=== PATIENT | male | born 1945 | race Caucasian/White ===

== ENCOUNTER 2017-11-11 09:41 | Day surgery (SDC) | payer BC, MEDICARE ==
[2017-11-11] VITALS (12 sets, daily range): BP systolic 99–160; BP diastolic 53–89
[~2017-11-11] VITALS: Ht 177.8 cm; Wt 87.4 kg
[~2017-11-11 09:41] MED LIST: AMLO10TA13 PO; ASPI-612 PO; BUPR150T6 PO; DOCU100C40 PO; FLAX100032 PO; GABA-581 PO; GLUC1CAP17 PO; HYDR-565 PO; HYDR12.522 PO; LEVO200T43 PO; LOVA20TA2 PO; MOME17SP NS; MULT-1085 PO; NAPR-762 PO; OMEG1CAP54 PO; TRAZ-91 PO; VALS160T2 PO; ZOLP5TAB8 PO
[2017-11-11] MEDS ORDERED: LORazepam 0.5 MG tablet PO PRN (10:25)
[2017-11-11] MEDS ORDERED: diphenhydrAMINE 25mg capsule PO PRN (10:25)
[2017-11-11] MEDS ORDERED: nitroGLYCERIN 0.4mg SUBLingual tab SL PRN (10:25)
[2017-11-11] MEDS ORDERED: normal saline 1000ml 1,000 ML IV SCH ×2 (10:25→14:50)
[2017-11-11 11:09] LABS: BASOPHILS % (AUTO) 0.6 % (0-1); EOSINOPHILS # (AUTO) 0.2 X10'3 (0-0.9); EOSINOPHILS % (AUTO) 3.9 % (0-6); LYMPHOCYTES # (AUTO) 1.5 X10'3 (1.1-4.8); LYMPHOCYTES % (AUTO) 26.6 % (21-51); MEAN CORPUSCULAR HEMOGLOBIN 33.4 PG (27.0-31.0); MEAN CORPUSCULAR HGB CONC 34.1 % (33.0-36.5); MEAN CORPUSCULAR VOLUME 97.9 FL (78-98); MEAN PLATELET VOLUME 10.7 FL (7.4-10.4); MONOCYTES # (AUTO) 0.5 X10'3 (0-0.9); MONOCYTES % (AUTO) 8.4 % (2-12); NEUTROPHILS # (AUTO) 3.4 X10'3 (1.8-7.7); NEUTROPHILS % (AUTO) 60.5 % (42-75); PLATELET COUNT 141 X10'3 (140-440); RED BLOOD COUNT 3.89 X10'6 (4.70-6.10); RED CELL DISTRIBUTION WIDTH 14.6 % (11.5-14.5); WHITE BLOOD COUNT 5.6 X10'3 (4.5-11.0)
[2017-11-11 11:19] LABS: PARTIAL THROMBOPLASTIN TIME 26 SECONDS (22-32); PROTHROMBIN TIME 10.1 SECONDS (9.0-12.0)
[2017-11-11 11:21] LABS: ALBUMIN 3.5 G/DL (3.4-5.0); ANION GAP 8 (8-16); BLOOD UREA NITROGEN 25 MG/DL (7-18); BUN/CREATININE RATIO 24.3 (5.4-32.0); CALCIUM 8.5 MG/DL (8.5-10.1); CHLORIDE 107 MMOL/L (99-107); CREATININE 1.03 MG/DL (0.60-1.10); GLUCOSE 89 MG/DL (70-104); POTASSIUM 3.5 MMOL/L (3.5-5.1); SODIUM 145 MMOL/L (135-145); TOTAL CARBON DIOXIDE 30.3 MMOL/L (24-32); eGFR 71 ML/MIN
[2017-11-11] MEDS ORDERED: GABA-581 PO (11:52)
[2017-11-11] MEDS ORDERED: PER10325T PO (11:52)
[2017-11-11] MEDS ORDERED: SUVO10TA PO (11:52)
[2017-11-11] MEDS ORDERED: LEVO175T7 PO (11:52)
[2017-11-11] MEDS ORDERED: POTASSIUM MAGNESIUM PO (11:52)
[2017-11-11] MEDS ORDERED: LOVA40TA2 PO (11:52)
[2017-11-11] MEDS ORDERED: SULF1TAB49 PO (11:52)
[2017-11-11] MEDS ORDERED: FLO0.4C PO (11:52)
[2017-11-11] MEDS ORDERED: iohexol 350 MG/ML 50ML vial IV ONE ×2 (12:55→13:45)
[2017-11-11] MEDS ORDERED: LIDOcaine 1% w/EPI 1:100,000 30ml vial (MDV) ONE (12:55)
[2017-11-11] MEDS ORDERED: fentaNYL/PF 50MCG/1 ML 2ML syringe ONE (12:55)
[2017-11-11] MEDS ORDERED: midazolam 2 mg/2 ml injection ONE (12:55)
[2017-11-11] MEDS ORDERED: iohexol 350MG/ML 100ml bottle IV ONE (12:55)
[2017-11-11 13:09] LABS: LARGE PLATELETS FEW; PLATELET ESTIMATE NORMAL
[2017-11-11] MEDS ORDERED: HYDROcodone/acetaminophen 5mg/325mg tablet PO PRN (14:50)
[2017-11-11] MEDS ORDERED: ondansetron/PF 4mg/2ml inj IV PRN (14:50)
[2017-11-11] MEDS ORDERED: proCHLORperazine 10 MG/2 ml inj IV PRN (14:55)
[2017-11-11] MEDS ORDERED: HYDROcodone/acetaminophen 10/325mg tab PO PRN (14:55)
[2017-11-11] MEDS ORDERED: OXAZEpam 15mg capsule PO PRN (14:55)
== END 2017-11-11 20:00 | disposition home or self-care (01) ==
LOC: SSTAY O 09:41
PROVIDERS: ATTEND Internal Medicine Cardiovascular Disease
DX: I25.10 Atherosclerotic heart disease of native coronary artery without angina pectoris (principal); I44.2 Atrioventricular block, complete; G89.29 Other chronic pain; I47.1 Supraventricular tachycardia; I45.19 Other right bundle-branch block; F17.210 Nicotine dependence, cigarettes, uncomplicated; G47.33 Obstructive sleep apnea (adult) (pediatric); N40.0 Benign prostatic hyperplasia without lower urinary tract symptoms; F32.9 Major depressive disorder, single episode, unspecified; F41.8 Other specified anxiety disorders; J44.9 Chronic obstructive pulmonary disease, unspecified; I11.0 Hypertensive heart disease with heart failure; I50.9 Heart failure, unspecified; Z99.3 Dependence on wheelchair; Z85.46 Personal history of malignant neoplasm of prostate; Z92.3 Personal history of irradiation; Z90.89 Acquired absence of other organs; Z72.89 Other problems related to lifestyle; Z86.79 Personal history of other diseases of the circulatory system; Z79.82 Long term (current) use of aspirin; Z79.891 Long term (current) use of opiate analgesic; Z90.49 Acquired absence of other specified parts of digestive tract; Z98.890 Other specified postprocedural states; Z79.899 Other long term (current) drug therapy
CPT/HCPCS: 36415; 71046; 75625; 80048; 85025; 85610; 85730; 93005; 93458; 99152; 99153; A6257; C1769; J1644; J2250; J3010; J3490; J7030; Q0163; Q9967; A4620

== ENCOUNTER 2019-03-25 11:15 | Outpatient (CLI) | payer OTHER, BC ==
[~2019-03-25 11:15] MED LIST changes: -AMLO10TA13 PO; -DOCU100C40 PO; +FLO0.4C PO; -HYDR-565 PO; +LEVO175T7 PO; -LEVO200T43 PO; -LOVA20TA2 PO; +LOVA40TA2 PO; -MULT-1085 PO; +PER10325T PO; +POTASSIUM MAGNESIUM PO; +SULF1TAB49 PO; +SUVO10TA PO; -ZOLP5TAB8 PO
[2019-03-25] MEDS ORDERED: iohexol 350MG/ML 100ml bottle IV ONE (11:52)
== END 2019-03-25 23:59 | disposition home or self-care (01) ==
LOC: 64 CT 11:15
PROVIDERS: ATTEND Internal Medicine
DX: I08.3 Combined rheumatic disorders of mitral, aortic and tricuspid valves (principal); J98.4 Other disorders of lung; I10 Essential (primary) hypertension; J44.9 Chronic obstructive pulmonary disease, unspecified; Z87.891 Personal history of nicotine dependence
CPT/HCPCS: 71260; 93306; Q9967

== ENCOUNTER 2022-07-23 19:47 | Emergency (ER) | payer MEDICARE, BC ==
[~2022-07-23] VITALS: Ht 177.8 cm; Wt 77.7 kg
[~2022-07-23 19:47] MED LIST changes: +BUPR150T22 PO; -BUPR150T6 PO; -MOME17SP NS; +MOME17SP5 NS
[2022-07-23 19:54] VITALS: BP 138/65
[2022-07-23] MEDS ORDERED: ondansetron 4mg rapidly disintigrating tab PO ONE ×2 (22:30→23:20)
[2022-07-23] MEDS ORDERED: morphine 4 MG/ML inj SYRINge IM ONE ×2 (22:30→23:20)
[2022-07-23] MEDS ORDERED: BAC10T PO (23:14)
== END 2022-07-23 23:21 | disposition home or self-care (01) ==
LOC: ER 19:48
DX: G62.9 Polyneuropathy, unspecified (principal)
CPT/HCPCS: 96372; 99284; J2270